=== PATIENT | male | born 1985 | race Caucasian/White ===

== ENCOUNTER 2021-08-06 21:30 | Emergency (ER) | payer OTHER, SELFPAY ==
[2021-08-06 21:31] VITALS: BP 141/87; PULSE 56; RESP 16; TEMP 36.6; O2SAT 100; BMI 29.7
--- NOTE | 2021-08-06 21:44 | ED.RN ---
Patient had emesis and meat/other food noted. Patient states he feels much better. MD notified.
--- NOTE | 2021-08-06 22:04 | ED.VIS.GI ---
HPI HPI - GI History of Present Illness Chief Complaint: Foreign Body Detail of Chief Complaint: Obstructed esophagus due to food bolus Informant: patient and spouse/S.O. Abdominal Pain/Flank Pain Onset: Hours Context: Sudden Onset Timing: Continuous Quality: Cramping Current Severity: Severe Maximum Severity: Severe Worsened by: - (Obstruction of esophagus due to meat food bolus) Relieved by: - (Patient vomited and the foreign body dislodged.) Nausea/Vomiting/Emesis GI Symptom: Positive for - (Inability to swallow own secretions) Narrative Narrative: Patient is a 35-year-old healthy male on no medications who presents because of obstruction of esophagus with a meat food bolus. informed me that at the age of 5 he required scope because of obstruction due to an apple. This is occurred 2 times since they have been . This is the third time. He is having difficulty phonating because he cannot swallow. He is trying to expel the bolus by vomiting. He complains of midsternal chest discomfort. He has no other complaints. Prior similar symptoms: Yes Recent Illness/Hospitalization: No PFSH PFSH Medical History (Updated 08/06/21 @ 22:[address] Leonardo Vaughn MD) Esophageal obstruction due to food impaction Medical History no medical history Home Medications pantoprazole [Protonix] 40 mg PO DAILY #15 ea 08/06/21 [Rx Last Taken Unknown] Allergy/AdvReac Type Severity Reaction Status Date / Time peanut Allergy Upset Verified 08/06/21 21:33 Stomach Surgical History no surgical history no surgical history Social History (Updated 08/06/21 @ 22:[address] Leonardo Vaughn MD) household members: spouse Smoking Status: Never smoker alcohol intake: current alcohol intake frequency: a few times a week substance use type: does not use ROS ROS ED Constitutional Constitutional ED: Denies chills, fever(s) or subjective ENT ENT ED: Denies rhinorrhea or sore throat Cardiovascular Cardiovascular: Reports chest pain; Denies palpitations or racing heartbeat Respiratory/Chest Respiratory/Chest: Denies cough, dyspnea or dyspnea on exertion Gastrointestinal Gastrointestinal: Reports vomiting; Denies abdominal pain, constipation, diarrhea or nausea Neurologic Neurologic: Denies paresthesias or weakness Hematologic/Lymphatic Hematologic/Lymphatic: Denies easy bleeding or easy bruising EXAM Physical Exam Const Vital Signs: 08/06/21 21:31 08/06/21 21:41 Temperature 97.8 F Temperature Source Temporal Pulse Rate 56 L Respiratory Rate 16 Respiratory Effort Normal Non-Labored Respiratory Pattern Normal Blood Pressure 141/87 H Blood Pressure Mean 105 Pulse Ox 100 Oxygen Delivery Method Room Air Positive well nourished and well developed General Appearance ED: well developed and other Patient is getting an having dry heaves. ; Negative for NAD HEENT Reports moist mucous membranes normocephalic and atraumatic Eyes PERRL and EOMs intact bilaterally Neck no lymphadenopathy and supple Resp normal respiratory effort Cardio regular rate and regular rhythm Neuro Sensorium / Orientation: alert and oriented to person Psych mental status grossly normal Skin no wounds Lesions: no lesions Rashes: no rashes MDM MDM MDM Narrative Medical decision making narrative: Dr. Donald the gastroenterology was contacted. He requested that the Endo team be called in. Prior to contacting the Endo team patient expectorated the fluid bolus. He is now able to swallow. He does complain of slight discomfort. Plan is PPI and follow-up with Dr. Donald as an outpatient. Patient was informed he needs to be scoped since this is not the first time this is occurred. The reason this is occurring needs to be evaluated. Discharge Plan Triage Chief Complaint: Foreign Body ED Provider: Leonardo Vaughn Dx/Rx/DC Orders Clinical Impression: Esophageal obstruction due to food impaction Instructions: ED Esophageal Foreign Body, Resolved Prescriptions: New pantoprazole [Protonix] 40 mg granules for susp in packet 40 mg PO DAILY Qty: 15 RF: 0 Primary Care Provider: Care Physician,No Primary Referrals: Marito Donald DO [STAFF PHYSICIAN] - 3-5 Days Care Physician,No Primary [Primary Care Provider] - Disposition Disposition: Home, Self Care
[2021-08-06 22:16] VITALS: PULSE 67; RESP 17; O2SAT 98
== END 2021-08-06 22:18 | disposition home or self-care (01) ==
PROVIDERS: Emergency Provider Emergency Medicine
DX: T18.128A Food in esophagus causing other injury, initial encounter (principal); K22.2 Esophageal obstruction
CPT/HCPCS: 99282